=== PATIENT | female | born 1960 | race Caucasian/White ===

== ENCOUNTER 2017-04-27 12:03 | Emergency (ER) | payer BC ==
[~2017-04-27 12:03] MED LIST: OXYB5TAB33 PO
[2017-04-27 12:04] VITALS: BP 135/70; PULSE 85; RESP 16; TEMP 98.7; O2SAT 98
--- NOTE | 2017-04-27 12:59 | RADRPT ---
EXAM DATE/TIME: 04/27/2017 12:33 [place] COMPARISON: No previous studies available for comparison. INDICATIONS : Weakness, syncope, shortness of breath x4 days. MEDICAL HISTORY : None. SURGICAL HISTORY : None. ENCOUNTER: Initial ACUITY: 4 - 6 days PAIN SCORE: 0/10 LOCATION: Bilateral chest FINDINGS: PA and lateral views of the chest demonstrate the lungs to be symmetrically aerated without evidence of mass, infiltrate or effusion. The cardiomediastinal contours are unremarkable. Osseous structure s are intact. CONCLUSION: No acute disease. Lio Amador MD on April 27, 2017 at 12:56 Board Certified Radiologist. This report was verified electronically.
[2017-04-27 13:11] LABS: AUTOMATED NEUTROPHIL # 6.4 TH/MM3 (1.8-7.7); BASOPHIL # 0.1 TH/MM3 (0-0.2); BASOPHIL % 0.9 % (0.0-2.0); EOSINOPHIL # 0.4 TH/MM3 (0-0.4); EOSINOPHIL % 4.2 % (0.0-4.0); HEMATOCRIT 45.2 % (35.0-46.0); HEMOGLOBIN 15.3 GM/DL (11.6-15.3); LYMPH % 21.1 % (9.0-44.0); MEAN CELL VOLUME 93.5 FL (80.0-100.0); MEAN CORPUSCULAR HEMOGLOBIN 31.7 PG (27.0-34.0); MEAN CORPUSCULAR HGB CONC 33.9 % (32.0-36.0); MEAN PLATELET VOLUME 7.5 FL (7.0-11.0); MONO % 7.2 % (0.0-8.0); MONOCYTE # 0.7 TH/MM3 (0-0.9); NEUT % 66.6 % (16.0-70.0); PLATELET COUNT 354 TH/MM3 (150-450); RED BLOOD COUNT 4.83 MIL/MM3 (4.00-5.30); RED CELL DISTRIBUTION WIDTH 12.7 % (11.6-17.2); WHITE BLOOD COUNT 9.6 TH/MM3 (4.0-11.0)
[2017-04-27 13:18] LABS: INTERNATIONAL NORMALIZED RATIO 1.1 RATIO; PROTHROMBIN TIME - PATIENT 10.8 SEC (9.8-11.6)
[2017-04-27 13:27] LABS: AST (GOT) 20 U/L (15-37); BICARBONATE 25.1 MEQ/L (21.0-32.0); BLOOD UREA NITROGEN 12 MG/DL (7-18); CHLORIDE 104 MEQ/L (98-107); CREATININE 0.74 MG/DL (0.50-1.00); GLOMERULAR FILTRATION RATE 81 ML/MIN (>89); GLUCOSE,RANDOM 84 MG/DL (74-106); LIPASE 164 U/L (73-393); MAGNESIUM 2.2 MG/DL (1.5-2.5); SODIUM (NA) 138 MEQ/L (136-145)
[2017-04-27 13:28] LABS: ALT (GPT) 22 U/L (10-53)
[2017-04-27 13:32] LABS: ALKALINE PHOSPHATASE 65 U/L (45-117); TOTAL BILIRUBIN ADULT 0.3 MG/DL (0.2-1.0); TOTAL PROTEIN 7.8 GM/DL (6.4-8.2); TROPONIN I LESS THAN 0.02 NG/ML (0.02-0.05)
[2017-04-27 17:20] VITALS: BP_SYST 113; BP_SYST 118; BP_SYST 125; BP_DIAS 58; BP_DIAS 65; BP_DIAS 68; RESP 16; RESP 20
[2017-04-27 17:21] VITALS: BP 113/58; PULSE 92; RESP 16; O2SAT 98
[2017-04-27] MEDS ORDERED: DICL1CAP3 PO (17:23)
[2017-04-27] MEDS ORDERED: AMLO2.5T PO (17:23)
[2017-04-27] MEDS ORDERED: OXYB5TAB8 PO (17:23)
--- NOTE | 2017-04-27 17:30 | PD ---
HPI Chief Complaint: Dizziness Time Seen by Provider: 17:09 Travel History International Travel<30 days: No Contact w/Intl Traveler<30days: No Traveled to known affect area: No History of Present Illness HPI 56-year-old female complains of lightheadedness. Patient states that the symptoms started 3 days ago. Patient states the lightheadedness intermittent worse with standing up. Patient denies any headache. Patient denies any visual change. Patient denies any neck pain. Patient denies any chest pain or shortness of breath. Patient denies abdominal pain. Patient denies any focal weakness or numbness of the extremity. Patient has history hypertension has been taking amlodipine 2.5 mg occasionally. Patient stated that she took the blood pressure medication this morning. Patient went to urgent care center this morning. Patient states that her blood pressure with check while lying down in standing up. Patient states that her blood pressure drop with standing up. Patient with advice to go to the ED for evaluation. Patient states that she started taking blood pressure medication about a year ago. PFSH Past Medical History Arthritis: Yes Blood Disorders: No Cancer: No Cardiovascular Problems: No Diabetes: No Diminished Hearing: No Endocrine: No Genitourinary: No Immune Disorder: No Musculoskeletal: Yes Neurologic: No Psychiatric: No Reproductive: No Respiratory: No Tetanus Vaccination: > 5 Years Influenza Vaccination: No Past Surgical History Gynecologic Surgery: Yes (ovarian cyst removed "pt had an abdominal cleaning due to infection") Social History Alcohol Use: Yes (2 BEERS DAILY) Tobacco Use: Yes (3 CIGS/DAY) Substance Use: No Allergies-Medications (Allergen,Severity, Reaction): Coded Allergies: No Known Allergies (Verified Adverse Reaction, Unknown, 04/27/17) Reported Meds & Prescriptions Reported Meds & Active Scripts Active Reported Zorvolex (Diclofenac) 18 Mg Cap 18 Mg PO TID Ditropan (Oxybutynin Chloride) 5 Mg Tab 5 Mg PO Q12HR Amlodipine (Amlodipine Besylate) 2.5 Mg Tab 2.5 Mg PO DAILY Review of Systems General / Constitutional: No: Fever Eyes: No: Visual changes HENT: Positive: Lightheadedness, No: Headaches Cardiovascular: No: Chest Pain or Discomfort Respiratory: No: Shortness of Breath Gastrointestinal: No: Abdominal Pain Genitourinary: No: Dysuria Musculoskeletal: No: Pain Skin: No Rash Neurologic: No: Weakness Psychiatric: No: Depression Endocrine: No: Polydipsia Hematologic/Lymphatic: No: Easy Bruising Physical Exam Narrative GENERAL: Well-nourished, well-developed patient. SKIN: Focused skin assessment warm/dry. HEAD: Normocephalic. EYES: No scleral icterus. No injection or drainage. Pupils 2 mm equal reactive. TM: Clear. NECK: Supple, trachea midline. No JVD or lymphadenopathy. CARDIOVASCULAR: Regular rate and rhythm without murmurs, gallops, or rubs. RESPIRATORY: Breath sounds equal bilaterally. No accessory muscle use. GASTROINTESTINAL: Abdomen soft, non-tender, nondistended. MUSCULOSKELETAL: No cyanosis, or edema. BACK: Nontender without obvious deformity. No CVA tenderness. Neurologic exam: Patient awake alert oriented 3. No obvious focal neurological deficit. Data Data Last Documented VS Vital Signs Date Time Temp Pulse Resp B/P (MAP) Pulse Ox O2 Delivery O2 Flow Rate FiO2 04/27/17 17:21 92 16 113/58 (76) 98 Room Air 04/27/17 12:04 98.7 Orders Orders Electrocardiogram (04/27/17 12:22) Ckmb (Isoenzyme) Profile (04/27/17 12:22) Complete Blood Count With Diff (04/27/17 12:22) Comprehensive Metabolic Panel (04/27/17 12:22) Magnesium (Mg) (04/27/17 12:22) Prothrombin Time / Inr (Pt) (04/27/17 12:22) Act Partial Throm Time (Ptt) (04/27/17 12:22) Troponin I (04/27/17 12:22) Lipase (04/27/17 12:22) Chest, Pa & Lat (04/27/17 12:22) Labs Laboratory Tests Test 04/27/17 12:44 White Blood Count 9.6 TH/MM3 Red Blood Count 4.83 MIL/MM3 Hemoglobin 15.3 GM/DL Hematocrit 45.2 % Mean Corpuscular Volume 93.5 FL Mean Corpuscular Hemoglobin 31.7 PG Mean Corpuscular Hemoglobin Concent 33.9 % Red Cell Distribution Width 12.7 % Platelet Count 354 TH/MM3 Mean Platelet Volume 7.5 FL Neutrophils (%) (Auto) 66.6 % Lymphocytes (%) (Auto) 21.1 % Monocytes (%) (Auto) 7.2 % Eosinophils (%) (Auto) 4.2 % Basophils (%) (Auto) 0.9 % Neutrophils # (Auto) 6.4 TH/MM3 Lymphocytes # (Auto) 2.0 TH/MM3 Monocytes # (Auto) 0.7 TH/MM3 Eosinophils # (Auto) 0.4 TH/MM3 Basophils # (Auto) 0.1 TH/MM3 CBC Comment DIFF FINAL Differential Comment Prothrombin Time 10.8 SEC Prothromb Time International Ratio 1.1 RATIO Activated Partial Thromboplast Time 27.3 SEC Blood Urea Nitrogen 12 MG/DL Creatinine 0.74 MG/DL Random Glucose 84 MG/DL Total Protein 7.8 GM/DL Albumin 4.0 GM/DL Calcium Level 9.0 MG/DL Magnesium Level 2.2 MG/DL Alkaline Phosphatase 65 U/L Aspartate Amino Transf (AST/SGOT) 20 U/L Alanine Aminotransferase (ALT/SGPT) 22 U/L Total Bilirubin 0.3 MG/DL Sodium Level 138 MEQ/L Potassium Level 3.9 MEQ/L Chloride Level 104 MEQ/L Carbon Dioxide Level 25.1 MEQ/L Anion Gap 9 MEQ/L Estimat Glomerular Filtration Rate 81 ML/MIN Total Creatine Kinase 53 U/L Troponin I LESS THAN 0.02 NG/ML Lipase 164 U/L MDM Medical Decision Making Medical Screen Exam Complete: Yes Emergency Medical Condition: Yes Interpretation(s) 1727 PM. Last Impressions Chest X-Ray 04/27/17 1222 Signed Impressions: Service Date/Time: Thursday, April 27, 2017 12:33 - CONCLUSION: No acute disease. Lio Amador MD 1727 PM. CBC within normal limits. CMP within normal limits. Cardiac enzymes are normal. EKG shows sinus rhythm nonspecific ST-T wave change. Differential Diagnosis Differential diagnosis including vertigo, electrolyte abnormality, dehydration, viral syndrome, side effect of blood pressure medication. Narrative Course 56-year-old female with intermittent lightheadedness. Orthostatic blood pressure normal. Her systolic blood pressure lying down in the 110s range. Diagnosis Primary Impression: Viral syndrome Patient Instructions: General Instructions Additional Instructions: Stop amlodipine. Advised fluid and regular diet. Follow with personal physician. Return if worse. Check blood pressure daily. Resume amlodipine if blood pressure above 140/90. Med/Other Pt SpecificInfo: Med Stopped Disposition: DISCHARGE HOME Condition: Stable Gato Waite MD Apr 27, 2017 17:30
--- NOTE | 2017-04-28 10:13 | EKG ---
Date Performed: 04/27/2017 Time Performed: 16:21:57 PTAGE: 56 years EKG: Sinus rhythm NORMAL ECG PREVIOUS TRACING : 01/02/2011 09.27 DOCTOR: Reji Soriano Interpretating Date/Time 04/28/2017 10:12:35
== END 2017-04-27 18:00 | disposition home or self-care (01) ==
LOC: NEPD 12:03
DX: B34.9 Viral infection, unspecified (principal); I10 Essential (primary) hypertension; F17.210 Nicotine dependence, cigarettes, uncomplicated; R06.02 Shortness of breath; Z79.899 Other long term (current) drug therapy
CPT/HCPCS: 71046; 80053; 82550; 83690; 83735; 84484; 85025; 85610; 85730; 93005; 99285